=== PATIENT | female | born 1950 | race Caucasian/White ===

== ENCOUNTER → 2016-03-12 | Outpatient (CLI) | payer MEDICARE, OTHER ==
--- NOTE | 2016-03-12 10:49 | REPMRS ---
Patient History The patient states she had a clinical breast exam in Patient is postmenopausal, has history of other cancer at age 60, and is nulliparous. No known family history of cancer. Benign core biopsy of the left breast, 2001. Digital Woman Screen Mammo: March 12, 2016 - Exam #: [id number] Bilateral CC and MLO view(s) were taken. Technologist: Izabella Perez, Technologist Prior study comparison: March 11, 2015, digital woman screen mammo performed at [facility]. March 10, 2014, digital woman screen mammo performed at [facility]. December 15, 2012, digital woman screen mammo performed at [facility]. FINDINGS: There are scattered fibroglandular densities. There has been no change in the appearance of the mammogram from the prior studies. There is a mild amount of scattered fibroglandular density which is fairly symmetric. There is no interval development of dominant mass, architectural distortion, or clustered microcalcification suggestive of malignancy. ASSESSMENT: BI-RADS/ACR category 1 mammogram. Negative. Recommendation Routine screening mammogram in 1 year (for women over age 40). This mammogram was interpreted with the aid of an FDA-approved computer-aided dectection system. Electronically Signed By: Eliot Sexton MD 03/12/16 [id number]
--- NOTE | 2016-03-14 11:27 | DEXA ---
AP SPINE L1 - L4 1.179 -0.1 1.4 LT FEMUR TOTAL 0.923 -0.7 0.5 RT FEMUR TOTAL 0.924 -0.7 0.5 TOTAL BODY TOTAL OTHER DUAL FEMUR FRAX* ASSESSMENT Risk factors: None. 10 year probability of fracture Major osteoporotic fracture 10.5 % Hip fracture 1.5 % COMMENTS: Normal bone densitometry of the spine. There is low bone density of the hips. The density of the spine has decreased 7.9% since the initial exam on 11/2001. The spine density has decreased 4.2% since the most recent exam on 02/2014. The density of the left hip has decreased 8.3% since the initial exam on 2001. The density of the left hip has increased 0.9% since the most recent exam on 2014. The density of the right hip has decreased 5.7% since the initial exam on 2001. The density of the right hip has increased 2.4% since the most recent exam on . FOLLOW-UP: Recommendation for the next bone density exam: 2 years. TE
== END ==
LOC: M WHC 09:30
PROVIDERS: ATTEND Nurse Practitioner Women's Health
DX: Z01.419 Encounter for gynecological examination (general) (routine) without abnormal findings (principal); Z12.31 Encounter for screening mammogram for malignant neoplasm of breast; Z78.0 Asymptomatic menopausal state; Z92.89 Personal history of other medical treatment
CPT/HCPCS: 77080; G0101; G0202

== ENCOUNTER → 2017-03-13 | Outpatient (CLI) | payer MEDICARE, OTHER | LOC: M WHC 11:05 | DX: Z12.31 Encounter for screening mammogram for malignant neoplasm of breast (principal); Z01.419 Encounter for gynecological examination (general) (routine) without abnormal findings (principal); Z78.0 Asymptomatic menopausal state; Z92.89 Personal history of other medical treatment; Z12.12 Encounter for screening for malignant neoplasm of rectum | CPT/HCPCS: 77067 ==

== ENCOUNTER → 2018-05-08 | Outpatient (CLI) | payer MEDICARE, OTHER ==
--- NOTE | 2018-05-08 13:18 | REPMRS ---
Patient History The patient states she had a clinical breast exam in 04/2018. Patient is postmenopausal, has history of skin cancer at age 60, and is nulliparous. Family history of prostate cancer at age 50 or over in brother, prostate cancer at age 50 or over in brother, prostate cancer at age 50 or over in brother. Benign core biopsy of the left breast, 2001. 3D TOMOSYNTHESIS WAS PERFORMED. Digital Woman Screen Mammo: May 08, 2018 - Exam #: [id number] Bilateral CC and MLO view(s) were taken. Technologist: Jimena Huggins, Technologist Prior study comparison: March 13, 2017, digital woman screen mammo performed at [facility]. March 12, 2016, digital woman screen mammo performed at [facility] [employer] [facility]. FINDINGS: The breast tissue is heterogeneously dense. This may lower the sensitivity of mammography. There has been no change in the appearance of the mammogram from the prior studies. There is a moderate amount of residual fibroglandular tissue which is fairly symmetric. There is no interval development of dominant mass, areas of architectural distortion, or clustered microcalcification typical of malignancy. Assessment: BI-RADS/ACR category 1 mammogram. Negative Mammogram. Recommendation Routine screening mammogram in 1 year (for women over age 40). This mammogram was interpreted with the aid of an FDA-approved computer-aided dectection system. Electronically Signed By: Francisco Olvera MD 05/08/18 [id number]
--- NOTE | 2018-05-13 08:57 | DEXA ---
AP SPINE L1 - L4 1.212 0.1 1.8 LT FEMUR TOTAL 0.901 -0.8 0.5 LT NECK 0.752 -2.1 -0.5 RT FEMUR TOTAL 0.872 -1.1 -0.2 RT NECK 0.755 -2.0 -0.5 TOTAL BODY TOTAL OTHER COMMENTS: Normal bone densitometry of the spine. There is low bone density of the hips. The increased density of the spine does represent a significant change. The decreased density of the left hip does represent a significant change. The decreased density of the right hip does represent a significant change. The density of the spine has decreased 5.3% since the initial exam on 11/17/2001. The spine density has increased 2.8% since the most recent exam on 03/12/2016. The density of the left hip has decreased 10.4% since the initial exam on 11/17/2001. The density of the left hip has decreased 2.4% since the most recent exam on 03/12/2016. The density of the right hip has decreased 11.0% since the initial exam on 11/17/2001. The density of the right hip has decreased 5.6% since the most recent exam on 03/12/2016. FOLLOW-UP: Recommendation for the next bone density exam: 2 years. TE
== END ==
LOC: M WHC 11:05
PROVIDERS: ATTEND Nurse Practitioner Women's Health
DX: R92.2 Inconclusive mammogram (principal); M81.0 Age-related osteoporosis without current pathological fracture; Z78.0 Asymptomatic menopausal state; Z98.890 Other specified postprocedural states
CPT/HCPCS: 77063; 77067; 77080; G0101

== ENCOUNTER → 2019-07-21 | Outpatient (CLI) | payer MEDICARE, OTHER ==
--- NOTE | 2019-07-21 12:25 | REPMRS ---
Patient History The patient states she had a clinical breast exam in July 2019.Family history of prostate cancer at age 50 or over in brother, prostate cancer at age 50 or over in brother, prostate cancer at age 50 or over in brother. Benign core biopsy of the left breast, 2001. 3D TOMOSYNTHESIS WAS PERFORMED. The [facility] lifetime risk for breast cancer is 7.0%. VOLPARA DENSITY B. Digital Woman Screen Mammo: July 21, 2019 - Exam #: [id number] Bilateral CC and MLO view(s) were taken. Technologist: Shweta Carvalho, Technologist Prior study comparison: May 08, 2018, bilateral digital woman screen mammo performed at [facility]. March 13, 2017, digital woman screen mammo performed at [facility]. FINDINGS: The breast tissue is heterogeneously dense. This may lower the sensitivity of mammography. There has been no change in the appearance of the mammogram from the prior studies. There is a moderate amount of residual fibroglandular tissue which is fairly symmetric. There is no interval development of dominant mass, areas of architectural distortion, or clustered microcalcification typical of malignancy. Assessment: BI-RADS/ACR category 1 mammogram. Negative Mammogram. Recommendation Routine screening mammogram in 1 year (for women over age 40). This mammogram was interpreted with the aid of an FDA-approved computer-aided dectection system. Electronically Signed By: Francisco Olvera MD 07/21/19 [id number]
== END ==
LOC: M WHC 10:04
PROVIDERS: ATTEND Nurse Practitioner Women's Health
DX: Z01.419 Encounter for gynecological examination (general) (routine) without abnormal findings (principal); Z12.31 Encounter for screening mammogram for malignant neoplasm of breast; Z80.42 Family history of malignant neoplasm of prostate; Z86.018 Personal history of other benign neoplasm
CPT/HCPCS: 77063; 77067; G0101

== ENCOUNTER → 2020-08-31 | Outpatient (CLI) | payer MEDICARE, OTHER ==
--- NOTE | 2020-08-31 15:33 | REPMRS ---
Patient History The patient states she had a clinical breast exam in August 2020. Patient is postmenopausal, has history of skin cancer at age 60, and is nulliparous. Family history of prostate cancer at age 50 or over in brother, prostate cancer at age 50 or over in brother, prostate cancer at age 50 or over in brother, prostate cancer at age 50 or over in brother. Benign core biopsy of the left breast, 2001. Taking estrogen for 2 years. Patient states no breast complaints today. Patient has signed MRS History Sheet. Digital Woman Screen Mammo: August 31, 2020 - Exam #: [id number] Bilateral CC and MLO view(s) were taken. Technologist: Jimena Huggins, Technologist Prior study comparison: July 21, 2019, bilateral digital woman screen mammo performed at [facility]. May 08, 2018, bilateral digital woman screen mammo performed at [facility]. March 13, 2017, digital woman screen mammo performed at [facility]. FINDINGS: There are scattered fibroglandular densities. The [employer] volumetric breast density category is:B. There has been no change in the appearance of the mammogram from the prior studies. There is a mild amount of scattered fibroglandular density which is fairly symmetric. There is no interval development of dominant mass, architectural distortion, or grouped microcalcification suggestive of malignancy. 3-D tomosynthesis shows no additional findings. Assessment: BI-RADS/ACR category 1 mammogram. Negative Mammogram. Recommendation Routine screening mammogram of both breasts in 1 year (for women over age 40). This patient's [facility] Lifetime Breast Cancer Risk is estimated at 6.6 %. This mammogram was interpreted with the aid of an FDA-approved computer-aided dectection system. Electronically Signed By: Eliot Sexton MD 08/31/20 [id number]
--- NOTE | 2020-08-31 16:02 | DEXAMM ---
INDICATION: LOW BONE DENSITY/M85.80. COMPARISON: The most recent comparison study is from May 08, 2018 in the most remote November 17, 2001.. TECHNIQUE: Bone density was measured using dual-energy x-ray absorptionmetry (DEXA). FINDINGS: AP SPINE L1-L4 BMD 1.267 g/cm2 Young Adult T-Score 0.6 Age Matched Z-Score is 2.2. LT FEMUR, TOTAL BMD 0.907 g/cm2 Young Adult T-Score -0.8 Age Matched Z-Score 0.6. LT NECK BMD 0.767 g/cm2 Young Adult T-Score -2.0 Age Matched Z-Score -0.3. RT FEMUR, TOTAL BMD 0.903 g/cm2 Young Adult T-Score -0.8 Age Matched Z-Score 0.6. RT NECK BMD 0.757 g/cm2 Young Adult T-Score -2.0 Age Matched Z-Score -0.4. IMPRESSION: There is normal bone density of the spine. There is low bone density of the left hip. There is low bone density of the right hip. The density of the spine has decreased 1.0% since the initial exam on November 17, 2001. The density of the spine increased 4.5% since most recent exam on May 08, 2018. The density of the left hip has decreased 9.8% since initial exam on November 17, 2001. The density of the left hip has increased 0.7% since most recent exam on May 08, 2018. The density of the right hip has decreased 7.9% since the initial exam on November 17, 2001. The density of the right hip has increased 3.6% since the most recent exam on May 08, 2018. FOLLOW-UP: Recommendation for the next bone density exam: 2 years. <Electronically signed by Eliot Sexton > 08/31/20 [id number]
== END ==
LOC: M WHC 14:07
PROVIDERS: ATTEND Nurse Practitioner Women's Health
DX: Z01.419 Encounter for gynecological examination (general) (routine) without abnormal findings (principal); Z12.31 Encounter for screening mammogram for malignant neoplasm of breast; M85.80 Other specified disorders of bone density and structure, unspecified site; Z78.0 Asymptomatic menopausal state; Z85.828 Personal history of other malignant neoplasm of skin; Z86.018 Personal history of other benign neoplasm; Z92.23 Personal history of estrogen therapy
CPT/HCPCS: 77063; 77067; 77080; G0101

== ENCOUNTER → 2022-01-02 | Outpatient (CLI) | payer MEDICARE, OTHER | LOC: M WHC 09:16 | PROVIDERS: ATTEND Advanced Practice Midwife | DX: Z12.31 Encounter for screening mammogram for malignant neoplasm of breast (principal) ==

== ENCOUNTER → 2023-01-15 | Outpatient (CLI) | payer MEDICARE, OTHER | LOC: M WHC 13:13 | PROVIDERS: ATTEND Advanced Practice Midwife | DX: Z12.31 Encounter for screening mammogram for malignant neoplasm of breast (principal) ==

== ENCOUNTER → 2024-01-29 | Outpatient (CLI) | payer MEDICARE, OTHER | LOC: M WHC 10:43 | PROVIDERS: ATTEND Nurse Practitioner Family | DX: Z12.31 Encounter for screening mammogram for malignant neoplasm of breast (principal); R92.1 Mammographic calcification found on diagnostic imaging of breast; R92.323 Mammographic fibroglandular density, bilateral breasts ==